=== PATIENT | female | born 1975 | race Asian ===

== ENCOUNTER 2017-06-16 10:39 | Inpatient (IN) | payer MEDICAID ==
[2017-05-27 11:23] LABS: BASOPHILS % (AUTO) 2.3 % (0.0-2.0); EOSINOPHILS % (AUTO) 0.4 % (0.0-3.0); LYMPHOCYTES % (AUTO) 19.3 % (20.0-45.0); MEAN CORPUSCULAR HEMOGLOBIN 25.5 PG (27.0-31.0); MEAN CORPUSCULAR HGB CONC 29.6 G/DL (32.0-36.0); MEAN CORPUSCULAR VOLUME 86 FL (80-99); MEAN PLATELET VOLUME 6.6 FL (6.5-10.1); MONOCYTES % (AUTO) 7.7 % (1.0-10.0); NEUTROPHILS % (AUTO) 70.2 % (45.0-75.0); PLATELET COUNT 253 K/UL (150-450); RED BLOOD COUNT 4.23 M/UL (4.20-5.40); RED CELL DISTRIBUTION WIDTH 15.7 % (11.6-14.8); WHITE BLOOD COUNT 7.2 K/UL (4.8-10.8)
[2017-05-27 11:34] LABS: PROTHROMBIN TIME 10.3 SEC (9.30-11.50)
[2017-05-27 11:38] LABS: APPEARANCE,URINE CLEAR; KETONES,URINE 1+ (NEGATIVE); LEUKOCYTE ESTERASE ,URINE 1+ (NEGATIVE); NITRITE,URINE NEGATIVE (NEGATIVE); PH,URINE 6 (4.5-8.0); PROTEIN,URINE NEGATIVE (NEGATIVE); UROBILINOGEN,URINE NORMAL MG/DL (0.0-1.0)
[2017-05-27 11:42] LABS: ANION GAP 11 mmol/L (5-15); CALCIUM 9.5 MG/DL (8.5-10.1); CARBON DIOXIDE 25 MMOL/L (21-32); CHLORIDE 104 MMOL/L (98-107); CREATININE 0.8 MG/DL (0.55-1.30); GLOMERULAR FILTRATION RATE > 60 mL/min (>60); POTASSIUM 3.8 MMOL/L (3.5-5.1); SODIUM 140 MMOL/L (136-145)
[2017-05-27 11:45] LABS: BACTERIA,URINE OCCASIONAL /HPF; SQUAMOUS EPITHELIAL CELL,UR FEW /LPF (NONE/OCC)
--- NOTE | 2017-05-27 14:08 | Diagnostic Imaging Report ---
Indication: Cough Comparison: None 2 views of the chest obtained. Findings: Cardiomediastinal silhouette and pulmonary vascularity are within normal limits for age. The diaphragmatic contour is smooth and costophrenic angles are sharp. No pleural effusions are identified. The bones are unremarkable. Impression: No acute disease
--- NOTE | 2017-05-27 15:34 | Cardiology Report ---
APPROVED REPORT EKG Measurement Heart [id number] Normal sinus rhythm with sinus arrhythmia Normal ECG
--- NOTE | 2017-06-13 12:45 | Pre-op HX & Phy Repo 2 SIG ---
DATE OF ADMISSION: 06/16/2017 DATE OF SURGERY: 06/16/2017. HISTORY OF PRESENT ILLNESS: The patient is a 42-year-old female, in good health with recent mammogram revealing a cluster of microcalcifications in the left breast upper inner quadrant posteriorly at 10 to 11 o'clock position. Ultrasound of the breast was unremarkable. Core biopsy was performed 05/16/2017 revealing invasive poorly differentiated ductal carcinoma. The patient has been found to be HER2-negative. She is scheduled to undergo left breast partial mastectomy with preoperative needle localization and left axillary lymph node biopsy. The patient is 1, para 1, has a 17-year-old child. PAST MEDICAL HISTORY AND MEDICATIONS: Protonix for gastroesophageal reflux disease. OPERATIONS: None. ALLERGIES: None. PHYSICAL EXAMINATION: VITAL SIGNS: She is 5 feet 4 inches and 125 pounds. HEENT: Within normal limits. LUNGS: Clear. HEART: Regular rhythm. BREASTS: Examination of the breasts reveals only rubbery thickening in the upper outer quadrant bilaterally, but no dominant mass and no primary or secondary sinus tumor. There was no palpable axillary or supraclavicular lymphadenopathy. ABDOMEN: Soft. PELVIC AND RECTAL: By primary care physician. EXTREMITIES: Without edema. NEUROLOGIC: Physiologic. IMPRESSION: Carcinoma, left breast, invasive, poorly differentiated. PLAN: Full discussion has been had with the patient regarding the nature of her surgery, alternatives, options, and risks including bleeding, infection, need for additional surgical procedures based on final pathology, need for postoperative radiation therapy to the breast, and depending on the findings of the axillary lymph nodes possible chemotherapy. All questions have been answered. The patient understands and agrees to proceed. Nelson Garcia M.D. DR: WESLEY JOB#: [id number] CC:
[2017-06-16] VITALS (10 sets, daily range): BP systolic 100–135; BP diastolic 67–96
[~2017-06-16] VITALS: Ht 162.6 cm; Wt 55.3 kg
[~2017-06-16 10:39] MED LIST: ceFAZolin sod 1 GM in NS 55 ML IVPB ONE
[2017-06-16] MEDS ORDERED: PROTONIX40 MG ORAL (11:26)
[2017-06-16] MEDS ORDERED: LR 1000ml ONE (13:30)
[2017-06-16] MEDS ORDERED: Sterile Water Irrig 1000ml IRRIG ONE (13:30)
[2017-06-16] MEDS ORDERED: Propofol 200mg/20ml IV ONE (13:30)
[2017-06-16] MEDS ORDERED: fentaNYL 100 mcg/2 mL IV ONE (13:30)
[2017-06-16] MEDS ORDERED: Midazolam 2mg/2ml Inj ONE (13:30)
--- NOTE | 2017-06-16 13:35 | Pre-Procedure Note/Attestation ---
Pre-Procedure Note/Attestation Complete Prior to Procedure Planned Procedure: left Procedure Narrative: left breast partial mastectomy with pre-op needle localization and left axillary lymph node biopsy Indications for Procedure Pre-Operative Diagnosis: carcinoma left breast Attestation I attest that I discussed the nature of the procedure; its benefits; risks and complications; and alternatives (and the risks and benefits of such alternatives ), prior to the procedure, with the patient (or the patient's legal signs and displays sales representative). I attest that, if there was a reasonable possibility of needing a blood transfusion, the patient (or the patient's legal signs and displays sales representative) was given the [facility] standardized written summary, pursuant to the [place] Blood Safety Act ([place] Health and Safety Code # 1645, as amended). I attest that I re-evaluated the patient just prior to the surgery and that there has been no change in the patient's H&P, except as documented below:none PHILLIP GALEANA Jun 16, 2017 13:35
[2017-06-16] MEDS ORDERED: NS Irrig 1000ml IRRIG ONE (13:45)
[2017-06-16] MEDS ORDERED: LR 1000ml 1,000 ML IVLG SCH (14:21)
--- NOTE | 2017-06-16 14:27 | Anethesia Preoperative Eval ---
Anesthesia Pre-op PMH/ROS General Date of Evaluation: Jun 16, 2017 Time of Evaluation: 13:36 Anesthesiologist: Justin ASA Score: ASA 2 Mallampati Score Class I : Soft palate, uvula, fauces, pillars visible Class II: Soft palate, uvula, fauces visible Class III: Soft palate, base of uvula visible Class IV: Only hard plate visible Mallampati Classification: Class I Surgeon: Radha Diagnosis: Left breast CA Surgical Procedure: Left breast partial mastectomy with axillary node disection Anesthesia History: none Family History: no anesthesia problems Allergies: Coded Allergies: No Known Allergies (Unverified , 06/13/17) Medications: see eMAR Past Medical History Cardiovascular: Denies: HTN, CAD, PA, valve dz, arrhythmia, other Pulmonary: Denies: asthma, COPD, IVONNE, other Gastrointestinal/Genitourinary: Reports: GERD, Denies: CRI, ESRD, other Neurologic/Psychiatric: Denies: dementia, CVA, depression/anxiety, TIA, other Endocrine: Denies: DM, hypothyroidism, steroids, other HEENT: Denies: cataract (L), cataract (R), glaucoma, [place] (L), [place] (R), other Hematology/Immune: Denies: anemia, DVT, bleeding disorder, other Musculoskeletal/Integumentary: Denies: OA, RA, DJD, DDD, edema, other PMH Narrative: GERD, breast CA PSxH Narrative: No prior surgery Anesthesia Pre-op Phys. Exam Physician Exam Last Vital Signs Date Time Temp Pulse Resp B/P (MAP) Pulse Ox O2 Delivery O2 Flow Rate FiO2 06/16/17 11:12 97.3 72 18 135/96 100 Room Air Constitutional: NAD Neurologic: CN 2-12 intact Cardiovascular: RRR, no M/R/G Respiratory: CTA Gastrointestinal: S/NT/ND Airway Exam Mallampati Score: Class II MO: full ROM: full Teeth: intact Anesthesia Pre-op A/P Labs WNL Urine Test Test 06/16/17 10:40 Urine HCG, Qualitative Negative Studies Pre-op Studies: EKG - NSR Risk Assessment & Plan Assessment: Healthy female for left partial mastectomy and node dissection Plan: GA, LMA Status Change Before Surgery: No Pre-Antibiotics Drug: Ancef Given Within 1 Hr of Incision: Yes Time Given: 13:55 SANTIAGO PULLIAM M.D. Jun 16, 2017 14:27
--- NOTE | 2017-06-16 14:28 | Immediate Post-Op Evaluation ---
Immediate Post-Op Evalulation Immediate Post-Op Evalulation Procedure: Left breast partial mastectomy with axillary node dissection Date of Evaluation: Jun 16, 2017 Time of Evaluation: 15:22 IV Fluids: 1100 Blood Pressure Systolic: 116 Blood Pressure Diastolic: 81 Pulse Rate: 81 Respiratory Rate: 20 O2 Sat by Pulse Oximetry: 100 Temperature (Fahrenheit): 98.4 Pain Score (1-10): 2 Nausea: No Vomiting: No Complications No complication Patient Status: awake, patent, none Hydration Status: adequate Drug: Ancef Given Within 1 Hr of Incision: Yes Time Given: 13:55 SANTIAGO PULLIAM M.D. Jun 16, 2017 14:28
[2017-06-16] MEDS ORDERED: LORazepam Inj 2mg/ml 1ml IV PRN (14:30)
[2017-06-16] MEDS ORDERED: DiphenhydrAMINE 50mg/ml Inj IVP PRN (14:30)
[2017-06-16] MEDS ORDERED: Hydromorphone 0.5mg/0.5ml inj IVP PRN (14:30)
[2017-06-16] MEDS ORDERED: Hydromorphone 0.5mg/0.5ml inj SUBQ PRN (15:15)
--- NOTE | 2017-06-16 15:15 | Brief Operative Note ---
Immediate Post Operative Note Operative Note Pre-op Diagnosis: carcinoma left breast Procedure: left breast partial mastectomy with pre-op needle localization and left axillary lymph node biopsy Post-op Diagnosis: same Post-op Diagnosis: same as pre-op Findings: consistent w/pre-op dx studies Surgeon: jerad Anesthesiologist: tunde Anesthesia: general Specimen: yes - breast; lymph node Complications: none Condition: stable Fluids: see anesthesia record Estimated Blood Loss: minimal Drains: CEFERINO Implant(s) used?: No PHILLIP GALEANA Jun 16, 2017 15:15
[2017-06-16] MEDS ORDERED: LR 1000ml 1,000 ML IV SCH (15:30)
[2017-06-16] MEDS ORDERED: Norco 5mg/325mg tab ORAL PRN (17:00)
[2017-06-16] MEDS: D5 1/2NS w/KCl 20mEq 1,000 ML IV SCH (17:45)
[2017-06-17 00:45] VITALS: BP 99/69
[2017-06-17] MEDS: D5 1/2NS w/KCl 20mEq 1,000 ML IV SCH (02:11)
--- NOTE | 2017-06-17 04:00 | Operative Note - Dictated ---
DATE OF OPERATION: 06/16/2017 SURGEON: Nelson Garcia M.D. [employer]SEM[employer] SUPERVISOR SURGEON: None. ANESTHESIOLOGIST: Nawaf Anderson M.D. TYPE OF ANESTHESIA: General. PREOPERATIVE DIAGNOSIS: Invasive poorly differentiated ductal carcinoma, left breast. POSTOPERATIVE DIAGNOSIS: Invasive poorly differentiated ductal carcinoma, left breast. OPERATION PERFORMED: Left breast partial mastectomy with preop needle localization and left axillary lymph node biopsy. DESCRIPTION OF PROCEDURE: The patient was taken to the operating room and under general anesthesia with sequential compression device stockings in place, she was prepped and draped in the usual fashion. The needle localization was in the upper inner quadrant of the left breast. A transverse curvilinear incision was made achieving hemostasis with cautery. Flaps were dissected circumferentially. Dissection was continued down to the chest wall and then the appropriate sector of breast tissue was resected placing sutures to oriented for the pathologist. Specimen radiograph confirmed the presence of the wire, the clip from the core biopsy, and the lesion within the tissue. The field was irrigated and hemostasis was secured with cautery. The incision was closed with interrupted inverted 2-0 Vicryl deep dermal subcutaneous sutures and the skin closed with 4-0 Monocryl subcuticular suture. Attention was then directed to the left axilla where a transverse curvilinear incision was made achieving hemostasis with cautery and incising the clavipectoral fascia. Two small lymph nodes were readily apparent. They were resected using clips and cautery for hemostasis. They were given to the pathologist to confirm the presence of a lymph node. No other palpable or enlarged lymph glands were evident. Through a separate stab wound inferior, a 19 mm round Yaya drain was placed into the axilla and sutured to the skin with a 2-0 nylon suture. After ascertaining that the hemostasis was secured, the incision was closed with interrupted 2-0 and 3-0 Vicryl and the skin closed with continuous 4-0 Monocryl subcuticular suture. Tincture of benzoin and half-inch Steri-Strips were applied to both incisions followed by dry sterile dressings. Final sponge and needle counts were correct. The patient tolerated the procedure well and left the operating room in good condition. Nelson Garcia M.D. DR: Lisa JOB#: [id number] CC:
[2017-06-17 04:50] VITALS: BP 105/74
[2017-06-17 08:00] VITALS: BP 105/72
[2017-06-17 09:16] VITALS: BP 105/72
--- NOTE | 2017-06-17 09:16 | 48 Hour Post Anesthesia Eval ---
Post Anesthesia Evaluation Procedure: Left breast partial mastectomy with axillary node dissection Date of Evaluation: Jun 17, 2017 Time of Evaluation: 09:35 Blood Pressure Systolic: 105 0: 72 Pulse Rate: 66 Respiratory Rate: 20 Temperature (Fahrenheit): 98.3 O2 Sat by Pulse Oximetry: 100 Airway: patent Nausea: No Vomiting: No Pain Intensity: 1 Hydration Status: adequate Cardiopulmonary Status: Stable Mental Status/LOC: patient returned to baseline Follow-up Care/Observations: As per surgery Post-Anesthesia Complications: No anesthetic complication Follow-up care needed: N/A SANTIAGO PULLIAM M.D. Jun 17, 2017 09:16
--- NOTE | 2017-06-17 09:24 | General Progress Note ---
Progress Note Progress Note doing well this AM. Ambulated and ate breakfast. No analgesics required this AM Breast incision clean, minimal swelling Axilla with mild soft tissue swelling - CEFERINO drain 8ml/12 hrs Imp. Stable Plan; discharge with supplies/instructions/limitations provided/discussed f/u 06/23 at [facility] Tylenol and/or ibuprofen 400mg q6h prn pain PHILLIP GALEANA Jun 17, 2017 09:24
--- NOTE | 2017-06-19 10:01 | Discharge Summary ---
Discharge Summary Hospital Course Date of Admission Jun 16, 2017 at 15:51 Date of Discharge Jun 17, 2017 at 10:00 Admitting Diagnosis BRITTNEY Hunt is a 42 year old female who was admitted on Jun 16, 2017 at 15:51 for Left Breast Carcinoma Procedures OPERATION PERFORMED 06/16/17: Left breast partial mastectomy with preop needle localization and left axillary lymph node biopsy. Hospital Course The patient is a 42-year-old female, in good health with recent mammogram revealing a cluster of microcalcifications in the left breast upper inner quadrant posteriorly at 10 to 11 o'clock position. Ultrasound of the breast was unremarkable. Core biopsy was performed 05/16/2017 revealing invasive poorly differentiated ductal carcinoma. The patient has been found to be HER2-negative. She was admitted on 06/16/17 and underwent Left breast partial mastectomy with preop needle localization and left axillary lymph node biopsy. The following day, the patient was discharged home. She was doing well. Ambulated and ate breakfast. No analgesics required Breast incision clean, minimal swelling Axilla with mild soft tissue swelling - CEFERINO drain 8ml/12 hrs Imp. Stable Plan; discharge with supplies/instructions/limitations provided/discussed f/u 06/23 at Breast Clinic Tylenol and/or ibuprofen 400mg q6h prn pain PREOPERATIVE DIAGNOSIS: Invasive poorly differentiated ductal carcinoma, left breast. POSTOPERATIVE DIAGNOSIS: Invasive poorly differentiated ductal carcinoma, left breast. --I have been assigned to complete a DC summary on this account,I was not involved with the pts management--Maynor Diane NP---- Discharge Discharge Disposition Patient was discharged to Home (01) Discharge Diagnoses: Lucina Diane NP Jun 19, 2017 10:01
== END 2017-06-17 10:00 | disposition home or self-care (01) | DRG 363 ==
LOC: SDS 10:39 → EDSTATUS 12:37 → 3E 15:51
PROC: 07B60ZX Excision of Left Axillary Lymphatic, Open Approach, Diagnostic (ICD-10-PCS; 2017-06-16)
PROC: 0HBU0ZZ Excision of Left Breast, Open Approach (ICD-10-PCS; principal; 2017-06-16 14:30)
DX: C50.212 Malignant neoplasm of upper-inner quadrant of left female breast (principal); K21.9 Gastro-esophageal reflux disease without esophagitis
CPT/HCPCS: 36415; 71020; 80048; 81003; 81025; 84703; 85025; 85610; 85730; 93005; 94003; 94150; J2250; J2405